=== PATIENT | female | born 1930 | race Caucasian/White ===

== ENCOUNTER 2018-10-14 11:16 | Emergency (ER) | payer OTHER ==
[2018-10-14 12:01] LABS: Absolute Lymphocytes (CBC) 1.2 K/uL (0.7-4.9); Absolute Monocytes 0.6 K/uL (0.1-1.3); Absolute Neutrophil 6.9 K/uL (1.8-8.0); Basophils % 0.6 % (0-1.3); Eosinophils % 0.4 % (0-4.4); Hematocrit 42.8 % (36.0-45.0); Lymphocytes % 13.2 % (15.3-44.8); MPV 7.8 fL (7.6-11.3); Monocytes % 7.2 % (3.3-12.3); RBC Red Blood Cell Count 4.59 M/uL (3.86-4.86)
[2018-10-14 12:02] LABS: Protime INR 0.96
[2018-10-14 12:20] LABS: ALT/SGPT 16 U/L (12-78); AST/SGOT 16 U/L (15-37); Albumin 3.5 g/dL (3.4-5.0); Alkaline Phosphatase 59 U/L (45-117); BUN Blood Urea Nitrogen 15 mg/dL (7-18); Bicarbonate 28 mmol/L (21-32); Bilirubin Direct 0.2 mg/dL (0-0.2); Bilirubin Total 0.8 mg/dL (0.2-1.0); Glucose Level 128 mg/dL (74-106); NT PRO-BNP 105 pg/mL (<450); Potassium 3.4 mmol/L (3.5-5.1); Protein, Total 6.8 g/dL (6.4-8.2); Sodium Level 140 mmol/L (136-145); Troponin (Emerg Dept Use Only) < 0.02 ng/mL (0.0-0.045)
--- NOTE | 2018-10-14 12:23 | RAD REPORT ---
EXAM DESCRIPTION: RAD - Chest Single View - 10/14/2018 12:09 pm CLINICAL HISTORY: Palpitations, chest pain COMPARISON: June 2017 TECHNIQUE: AP portable chest image was obtained 1158 hours . FINDINGS: No acute lung parenchymal process. Interstitial pattern is similar to comparison. Surgical clips overlie the lower left chest. Right hemidiaphragm elevation is again noted. Heart and vasculat ure are normal. No measurable pleural effusion and no pneumothorax. No acute bony abnormality seen. N o acute aortic findings suspected. IMPRESSION: No acute cardiopulmonary process. No significant change from comparison.
--- NOTE | 2018-10-14 13:20 | EDPHYS ---
Physician Documentation [facility] Name: Niurka Colorado Age: 87 yrs Sex: Female : 1930 Arrival Date: 10/14/2018 Time: 11:17 Bed 5 Private MD: Chirag George C ED Physician Moreno Randhawa HPI: 10/14 13:12 This 87 yrs old Female presents to ER via Wheelchair with complaints of jr8 Palpitations. 13:12 The patient presents with a history of irregular heart beat. Context: The symptoms jr8 occur at rest, during sleep. Onset: The symptoms/episode began/occurred gradually, 2 week(s) ago. Duration: The patient or guardian reports multiple episodes. Modifying factors: The symptoms are aggravated by nothing. The symptoms are alleviated by nothing. Associated signs and symptoms: Pertinent positives: SOB. Severity of symptoms: At their worst the symptoms were moderate in the emergency department the symptoms have improved. The patient has not experienced similar symptoms in the past. The patient has been recently seen by a physician:. Patient stated that she is currently wearing Holter monitor for heart palpitations. Came to ED today because there was concern that she was having shortness of breath that would wake her at night. Stated that one year ago had lost her child and has been very sad about this. Has anxiety from loss . Historical: - Allergies: 11:37 NKA; iw - Home Meds: 11:37 metoprolol tartrate 50 mg Oral tab 1 tab once daily [Active]; zolpidem 10 mg Oral tab 1 iw tab once daily [Active]; lorazepam 0.5 mg Oral tab 1 tab 2 times per day [Active]; spironolactone 25 mg Oral tab 1 tab once daily [Active]; - PMHx: 11:38 Hypertension; iw 11:39 Anxiety; Depression; Atrial Fib; iw 11:44 Cancer, Breast; iw - PSHx: 11:37 Knee surgery; Appendectomy; Cholecystectomy; Hysterectomy; Lumpectomy; iw - Ebola Screening: : Patient negative for fever greater than or equal to 101.5 degrees Fahrenheit, and additional compatible Ebola Virus Disease symptoms Patient denies exposure to infectious person Patient denies travel to an Ebola-affected area in the 21 days before illness onset No symptoms or risks identified at this time. ROS: 13:12 Eyes: Negative for injury, pain, redness, and discharge, ENT: Negative for injury, jr8 pain, and discharge, Neck: Negative for injury, pain, and swelling, Abdomen/GI: Negative for abdominal pain, nausea, vomiting, diarrhea, and constipation, Back: Negative for injury and pain, MS/Extremity: Negative for injury and deformity, Skin: Negative for injury, rash, and discoloration, Neuro: Negative for headache, weakness, numbness, tingling, and seizure. 13:12 Cardiovascular: Positive for palpitations, paroxysmal nocturnal dyspnea, Negative for chest pain, edema, orthopnea. 13:12 Respiratory: Positive for shortness of breath. Exam: 13:12 Eyes: Pupils equal round and reactive to light, extra-ocular motions intact. Lids and jr8 lashes normal. Conjunctiva and sclera are non-icteric and not injected. Cornea within normal limits. Periorbital areas with no swelling, redness, or edema. ENT: Nares patent. No nasal discharge, no septal abnormalities noted. Tympanic membranes are normal and external auditory canals are clear. Oropharynx with no redness, swelling, or masses, exudates, or evidence of obstruction, uvula midline. Mucous membranes moist. Neck: Trachea midline, no thyromegaly or masses palpated, and no cervical lymphadenopathy. Supple, full range of motion without nuchal rigidity, or vertebral point tenderness. No Meningismus. Cardiovascular: Regular rate and rhythm with a normal S1 and S2. No gallops, murmurs, or rubs. Normal PMI, no JVD. No pulse deficits. Respiratory: Lungs have equal breath sounds bilaterally, clear to auscultation and percussion. No rales, rhonchi or wheezes noted. No increased work of breathing, no retractions or nasal flaring. Abdomen/GI: Soft, non-tender, with normal bowel sounds. No distension or tympany. No guarding or rebound. No evidence of tenderness throughout. Back: No spinal tenderness. No costovertebral tenderness. Full range of motion. Skin: Warm, dry with normal turgor. Normal color with no rashes, no lesions, and no evidence of cellulitis. MS/ Extremity: Pulses equal, no cyanosis. Neurovascular intact. Full, normal range of motion. Neuro: Awake and alert, GCS 15, oriented to person, place, time, and situation. Cranial nerves II-XII grossly intact. Motor strength 5/5 in all extremities. Sensory grossly intact. Cerebellar exam normal. Normal gait. Vital Signs: 11:35 BP 154 / 85; Pulse 77; Resp 16; Pulse Ox 97% on R/A; Weight 62.14 kg; Height 5 ft. 4 iw in. (162.56 cm); Pain 0/10; 11:37 Temp 98.2(O); aa5 12:15 BP 121 / 74; Pulse 72; Resp 16 S; Pulse Ox 96% on R/A; Pain 0/10; aa5 13:00 BP 121 / 67; Pulse 65; Resp 16 S; Pulse Ox 96% on R/A; aa5 11:35 Body Mass Index 23.52 (62.14 kg, 162.56 cm) iw MDM: 11:28 Patient medically screened. [facility] 13:12 Data reviewed: vital signs, nurses notes, lab test result(s), EKG, radiologic studies, jr8 plain films, and as a result, I will discharge patient. Data interpreted: Pulse oximetry: on room air is 97 %. Interpretation: normal. Counseling: I had a detailed discussion with the patient and/or guardian regarding: the historical points, exam findings, and any diagnostic results supporting the discharge/admit diagnosis, lab results, radiology results, the need for outpatient follow up, a computer forensics analyst, a family practitioner, to return to the emergency department if symptoms worsen or persist or if there are any questions or concerns that arise at home. 10/14 11:41 Order name: Basic Metabolic Panel; Complete Time: 13:10/14 11:41 Order name: CBC with Diff; Complete Time: 12:18 10/14 11:41 Order name: LFT's; Complete Time: 13:10/14 11:41 Order name: Magnesium; Complete Time: 13:10/14 11:41 Order name: NT PRO-BNP; Complete Time: 13:10/14 11:41 Order name: PT-INR; Complete Time: 12:18 10/14 11:41 Order name: Troponin (emerg Dept Use Only); Complete Time: 13:10/14 11:41 Order name: XRAY Chest (1 view); Complete Time: 12:29 10/14 11:41 Order name: EKG; Complete Time: 11:50 8 10/14 11:41 Order name: Cardiac monitoring; Complete Time: 12:08 8 10/14 11:41 Order name: EKG - Nurse/Tech; Complete Time: 12:08 jr8 10/14 12:26 Order name: LAB Add On 10/14 12:36 Order name: T4 Free; Complete Time: 13:05 [facility] 10/14 12:36 Order name: Thyroid Stimulating Hormone; Complete Time: 13:05 [facility] 10/14 11:41 Order name: IV Saline Lock; Complete Time: 11:46 jr8 10/14 11:41 Order name: Labs collected and sent; Complete Time: :46 [facility] 10/14 11:41 Order name: O2 Per Protocol; Complete Time: :46 8 10/14 11:41 Order name: O2 Sat Monitoring; Complete Time: :46 Administered Medications: No medications were administered Disposition: 18:20 Co-signature as Attending Physician, Moreno Randhawa MD. rn Disposition: 10/14/18 13:19 Discharged to Home. Impression: Palpitations. - Condition is Stable. - Discharge Instructions: Holter Monitoring, Palpitations. - Medication Reconciliation Form, Thank You Letter, Antibiotic Education, Prescription Opioid Use form. - Follow up: Chirag George MD; When: 2 - 3 days; Reason: Recheck today's complaints, Continuance of care, Re-evaluation by your physician. - Problem is new. - Symptoms have improved. Signatures: Dispatcher [employer] Lin Martins RN RN iw Nieto, Roman, MD MD rn Calderon, Audri, RN RN aa5 Nick Shultz PA PA jr8 Corrections: (The following items were deleted from the chart) 13:53 13:19 10/14/2018 13:19 Discharged to Home. Impression: Palpitations. Condition is aa5 Stable. Forms are Medication Reconciliation Form, Thank You Letter, Antibiotic Education, Prescription Opioid Use. Follow up: Chirag George; When: 2 - 3 days; Reason: Recheck today's complaints, Continuance of care, Re-evaluation by your physician. Problem is new. Symptoms have improved. jr8
--- NOTE | 2018-10-14 13:20 | ER ---
Nurse's Notes [facility] Name: Niurka Colorado Age: 87 yrs Sex: Female : 1930 Arrival Date: 10/14/2018 Time: 11:17 Bed 5 Private MD: Chirag George C Diagnosis: Palpitations Presentation: 10/14 11:33 Presenting complaint: Patient states: is currently wearing a Holter monitor X 2 weeks, iw has been having palpitations fro a couple months, recently has been feeling SOB at night while sleeping, c/o feeling weak and sweaty, denies fever. Transition of care: patient was not received from another setting of care. Onset of symptoms was October 12, 2018. Risk Assessment: Do you want to hurt yourself or someone else? Patient reports no desire to harm self or others. Initial Sepsis Screen: Does the patient meet any 2 criteria? No. Patient's initial sepsis screen is negative. Does the patient have a suspected source of infection? No. Patient's initial sepsis screen is negative. Care prior to arrival: None. 11:33 Method Of Arrival: Wheelchair iw 11:33 Acuity: AMANDA 3 iw Historical: - Allergies: 11:37 NKA; iw - Home Meds: 11:37 metoprolol tartrate 50 mg Oral tab 1 tab once daily [Active]; zolpidem 10 mg Oral tab 1 iw tab once daily [Active]; lorazepam 0.5 mg Oral tab 1 tab 2 times per day [Active]; spironolactone 25 mg Oral tab 1 tab once daily [Active]; - PMHx: 11:38 Hypertension; iw 11:39 Anxiety; Depression; Atrial Fib; iw 11:44 Cancer, Breast; iw - PSHx: 11:37 Knee surgery; Appendectomy; Cholecystectomy; Hysterectomy; Lumpectomy; iw - Ebola Screening: : Patient negative for fever greater than or equal to 101.5 degrees Fahrenheit, and additional compatible Ebola Virus Disease symptoms Patient denies exposure to infectious person Patient denies travel to an Ebola-affected area in the 21 days before illness onset No symptoms or risks identified at this time. Screenin:50 Abuse screen: Denies threats or abuse. Nutritional screening: No deficits noted. aa5 Tuberculosis screening: No symptoms or risk factors identified. Fall Risk Fall in past 12 months (25 points). No secondary diagnosis (0 pts). IV access (20 points). Ambulatory Aid- None/Bed Rest/Nurse Assist (0 pts). Mental Status- Oriented to own ability (0 pts). Total Chong Fall Scale indicates High Risk Score (45 or more points). Fall prevention measures have been instituted. Side Rails Up X 2. Assessment: 11:37 General: Appears comfortable, Behavior is calm, cooperative, Pt states "I came here aa5 today because the palpitations were worse during the night and my heart rate was 136" . Pain: Denies pain. Neuro: Level of Consciousness is awake, alert, obeys commands, Oriented to person, place, time, situation. Cardiovascular: Reports palpitations and SOB only during the night while asleep Heart tones S1 S2 present Rhythm is sinus rhythm. Respiratory: Airway is patent Respiratory effort is even, unlabored, Respiratory pattern is regular, symmetrical, Breath sounds are clear bilaterally. GI: Abdomen is round non-distended, Bowel sounds present X 4 quads. Abd is soft and non tender X 4 quads. : No signs and/or symptoms were reported regarding the genitourinary system. EENT: No signs and/or symptoms were reported regarding the EENT system. Derm: Skin is pink, warm \\T\\ dry. Musculoskeletal: Range of motion: intact in all extremities. 12:15 Reassessment: Pt resting in bed with eyes closed, respirations even and unlabored, skin aa5 is pink/warm/dry. 13:40 Reassessment: Patient is alert, oriented x 3, equal unlabored respirations, skin aa5 warm/dry/pink. Patient denies pain at this time. Vital Signs: 11:35 BP 154 / 85; Pulse 77; Resp 16; Pulse Ox 97% on R/A; Weight 62.14 kg; Height 5 ft. 4 iw in. (162.56 cm); Pain 0/10; 11:37 Temp 98.2(O); aa5 12:15 BP 121 / 74; Pulse 72; Resp 16 S; Pulse Ox 96% on R/A; Pain 0/10; aa5 13:00 BP 121 / 67; Pulse 65; Resp 16 S; Pulse Ox 96% on R/A; aa5 11:35 Body Mass Index 23.52 (62.14 kg, 162.56 cm) iw ED Course: 11:17 Patient arrived in ED. rg4 11:18 Chirag George MD is Private Physician. rg4 11:28 Nick Shultz PA is PHCP. jr8 11:28 Moreno Randhawa MD is Attending Physician. jr8 11:30 Vandana Silva, RN is Primary Nurse. aa5 11:35 Triage completed. iw 11:36 Arm band placed on. iw 11:37 Patient has correct armband on for positive identification. aa5 11:37 general merchandise manager on. Pulse ox on. NIBP on. aa5 11:39 Initial lab(s) drawn, by me. Inserted saline lock: 20 gauge in right forearm, using aa5 aseptic technique. 11:45 EKG done, by transportation engineering technician. reviewed by Moreno Randhawa MD. at1 12:07 X-ray completed. Portable x-ray completed in exam room. Patient tolerated procedure sw well. 12:11 XRAY Chest (1 view) In Process Unspecified. EDMS 12:14 No provider procedures requiring assistance completed. aa5 13:19 Chirag George MD is Referral Physician. jr8 13:40 IV discontinued, intact, bleeding controlled, No redness/swelling at site. Pressure aa5 dressing applied. Administered Medications: No medications were administered Outcome: 13:19 Discharge ordered by MD. jr8 13:40 Discharged to home via wheelchair, with family. aa5 13:40 Condition: stable 13:40 Discharge instructions given to patient, family, Instructed on discharge instructions, follow up and referral plans. Demonstrated understanding of instructions, follow-up care. 13:53 Patient left the ED. aa5 Signatures: Dispatcher [employer] EDMS Lin Pizano RN RN Vandana Silva, RN RN aa5 Nick Shultz PA PA jr8 Becky Eaton, spectrographic analyst EKG Tat1 Fadia Green Rubi rg4
[2018-10-14 14:08] VITALS: TEMP 98.2
[2018-10-14 14:09] VITALS: O2SAT 96
[2018-10-14 14:11] VITALS: BP 121/67
--- NOTE | 2018-10-14 16:57 | EKG ---
Test Date: 2018-10-14 Test Time: 11:26:53 Solution Advisor: ELY MEASUREMENT RESULTS: Intervals: Rate: 75 WI: 160 QRSD: 116 QT: 372 QTc: 415 [place]: P: 46 WI: 160 QRS: 11 T: 29 INTERPRETIVE STATEMENTS: Normal sinus rhythm Incomplete right bundle branch block ST & T wave abnormality, consider anterior ischemia Abnormal ECG Compared to ECG 01/02/2015 05:52:23 Incomplete right bundle-branch block now present Possible ischemia now present ST (T wave) deviation still present Electronically Signed On 10-14-18 16:56:48 OSTEOPATHIC PHYSICIAN by All Cullen
== END 2018-10-14 13:53 | disposition home or self-care (01) ==
LOC: ER 11:16
DX: R00.2 Palpitations (principal); I45.10 Unspecified right bundle-branch block; I10 Essential (primary) hypertension; F41.9 Anxiety disorder, unspecified; F32.9 Major depressive disorder, single episode, unspecified; I48.91 Unspecified atrial fibrillation
CPT/HCPCS: 36415; 71045; 80048; 80076; 83735; 83880; 84439; 84443; 84484; 85025; 85610; 93005; 99284

== ENCOUNTER 2019-04-05 10:38 | Emergency (ER) | payer OTHER ==
--- NOTE | 2019-04-05 10:56 | ER ---
Nurse's Notes [facility] Name: Niurka Colorado Age: 88 yrs Sex: Female : 1930 Arrival Date: 04/05/2019 Time: 10:41 Bed 14 Private MD: Chirag George C Diagnosis: Patient's intentional underdosing of medication regimen for other reason Presentation: 04/05 10:42 Presenting complaint: Patient states: i need a Rx refill for lorazepam 0.5 mg twice a hj day; i was out since yesterday morning; im due to see PCP on May;. Transition of care: patient was not received from another setting of care. Onset of symptoms was April 05, 2019. Risk Assessment: Do you want to hurt yourself or someone else? Patient reports no desire to harm self or others. Initial Sepsis Screen: Does the patient meet any 2 criteria? No. Patient's initial sepsis screen is negative. Does the patient have a suspected source of infection? No. Patient's initial sepsis screen is negative. Care prior to arrival: None. 10:42 Method Of Arrival: Ambulatory 10:42 Acuity: AMANDA 5 Triage Assessment: 10:52 General: Appears in no apparent distress. slender, Behavior is cooperative, appropriate hj for age, anxious. Pain: Denies pain. Historical: - Allergies: 10:44 NKA; hj - Home Meds: 10:53 lorazepam 0.5 mg Oral tab 1 tab 2 times per day [Active]; metoprolol tartrate 50 mg hj Oral tab 1 tab once daily [Active]; spironolactone 25 mg Oral tab 1 tab once daily [Active]; zolpidem 10 mg Oral tab 1 tab once daily [Active]; - PMHx: 10:44 Anxiety; Atrial Fib; Cancer, Breast; Depression; Hypertension; hj - PSHx: 10:44 Knee surgery; Appendectomy; Cholecystectomy; Hysterectomy; Lumpectomy; hj - Immunization history:: Adult Immunizations up to date. - Social history:: Smoking status: Patient/guardian denies using tobacco, Patient/guardian denies using alcohol. - Ebola Screening: : Patient negative for fever greater than or equal to 101.5 degrees Fahrenheit, and additional compatible Ebola Virus Disease symptoms Patient denies exposure to infectious person Patient denies travel to an Ebola-affected area in the 21 days before illness onset. Screenin:52 Abuse screen: Denies threats or abuse. Denies injuries from another. Nutritional hj screening: No deficits noted. Tuberculosis screening: No symptoms or risk factors identified. Fall Risk None identified. Vital Signs: 10:45 BP 131 / 84; Pulse 92; Resp 18; Temp 97.9(O); Pulse Ox 95% on R/A; Weight 66.22 kg; hj Height 5 ft. 4 in. (162.56 cm); Pain 0/10; 10:45 Body Mass Index 25.06 (66.22 kg, 162.56 cm) ED Course: 10:41 Patient arrived in ED. mr 10:41 Chirag George MD is Private Physician. mr 10:44 Triage completed. hj 10:44 Arm band placed on. hj 10:49 [facility] Houston [facility] snw 10:49 Moreno Randhawa MD is Attending Physician. snw 10:53 Patient has correct armband on for positive identification. Bed in low position. Call light in reach. Side rails up X 1. Adult w/ patient. 10:54 Delvis Xie, RN is Primary Nurse. 10:54 Chirag George MD is Referral Physician. snw Administered Medications: 11:01 Drug: XANax Tablet 1 mg Route: PO; Outcome: 10:55 Discharge ordered by . snw 11:04 Patient left the ED. Signatures: Delvis Xie RN RN Tracy Houston FNP-C FNP-Karen Ángela Oglesby Lin Pizano RN RN Flaquito Ty RN RN
--- NOTE | 2019-04-05 10:56 | EDPHYS ---
Physician Documentation [facility] Name: Niurka Colorado Age: 88 yrs Sex: Female : 1930 Arrival Date: 04/05/2019 Time: 10:41 Bed 14 Private MD: Chirag George C ED Physician Moreno Randhawa HPI: 04/05 11:01 This 88 yrs old Female presents to ER via Ambulatory with complaints of snw Medication Refill. 11:01 The patient presents to the emergency department requesting refill(s) for: Xanax. The snw patient chronically suffers from heart disease, hypertension, anxiety, breast ca. It is unknown whether or not the patient has had similar symptoms in the past. sees Dr. George. Historical: - Allergies: 10:44 NKA; hj - Home Meds: 10:53 lorazepam 0.5 mg Oral tab 1 tab 2 times per day [Active]; metoprolol tartrate 50 mg hj Oral tab 1 tab once daily [Active]; spironolactone 25 mg Oral tab 1 tab once daily [Active]; zolpidem 10 mg Oral tab 1 tab once daily [Active]; - PMHx: 10:44 Anxiety; Atrial Fib; Cancer, Breast; Depression; Hypertension; hj - PSHx: 10:44 Knee surgery; Appendectomy; Cholecystectomy; Hysterectomy; Lumpectomy; hj - Immunization history:: Adult Immunizations up to date. - Social history:: Smoking status: Patient/guardian denies using tobacco, Patient/guardian denies using alcohol. - Ebola Screening: : Patient negative for fever greater than or equal to 101.5 degrees Fahrenheit, and additional compatible Ebola Virus Disease symptoms Patient denies exposure to infectious person Patient denies travel to an Ebola-affected area in the 21 days before illness onset. ROS: 11:00 Constitutional: Negative for fever, chills, and weight loss, Eyes: Negative for injury, snw pain, redness, and discharge, ENT: Negative for injury, pain, and discharge, Neck: Negative for injury, pain, and swelling, Cardiovascular: Negative for chest pain, palpitations, and edema, Respiratory: Negative for shortness of breath, cough, wheezing, and pleuritic chest pain, Abdomen/GI: Negative for abdominal pain, nausea, vomiting, diarrhea, and constipation, Back: Negative for injury and pain, : Negative for injury, bleeding, discharge, and swelling, MS/Extremity: Negative for injury and deformity, Skin: Negative for injury, rash, and discoloration, Neuro: Negative for headache, weakness, numbness, tingling, and seizure. 11:00 Psych: Positive for anxiety, needs medication refill. Exam: 10:57 Constitutional: This is a well developed, well nourished patient who is awake, alert, snw and in no acute distress. Head/Face: Normocephalic, atraumatic. Eyes: Pupils equal round and reactive to light, extra-ocular motions intact. Lids and lashes normal. Conjunctiva and sclera are non-icteric and not injected. Cornea within normal limits. Periorbital areas with no swelling, redness, or edema. ENT: Nares patent. No nasal discharge, no septal abnormalities noted. Tympanic membranes are normal and external auditory canals are clear. Oropharynx with no redness, swelling, or masses, exudates, or evidence of obstruction, uvula midline. Mucous membranes moist. Neck: Trachea midline, no thyromegaly or masses palpated, and no cervical lymphadenopathy. Supple, full range of motion without nuchal rigidity, or vertebral point tenderness. No Meningismus. Chest/axilla: Normal chest wall appearance and motion. Nontender with no deformity. No lesions are appreciated. Respiratory: Lungs have equal breath sounds bilaterally, clear to auscultation and percussion. No rales, rhonchi or wheezes noted. No increased work of breathing, no retractions or nasal flaring. Abdomen/GI: Soft, non-tender, with normal bowel sounds. No distension or tympany. No guarding or rebound. No evidence of tenderness throughout. Back: No spinal tenderness. No costovertebral tenderness. Full range of motion. Skin: Warm, dry with normal turgor. Normal color with no rashes, no lesions, and no evidence of cellulitis. MS/ Extremity: Pulses equal, no cyanosis. Neurovascular intact. Full, normal range of motion. Neuro: Awake and alert, GCS 15, oriented to person, place, time, and situation. Cranial nerves II-XII grossly intact. Motor strength 5/5 in all extremities. Sensory grossly intact. Cerebellar exam normal. Normal gait. 10:57 Cardiovascular: Rate: normal, Rhythm: irregularly irregular, Heart sounds: normal. Vital Signs: 10:45 BP 131 / 84; Pulse 92; Resp 18; Temp 97.9(O); Pulse Ox 95% on R/A; Weight 66.22 kg; hj Height 5 ft. 4 in. (162.56 cm); Pain 0/10; 10:45 Body Mass Index 25.06 (66.22 kg, 162.56 cm) hj MDM: 10:49 Patient medically screened. snw 11:01 Data reviewed: vital signs, nurses notes. Data interpreted: Pulse oximetry: on room air snw is 95 %. Interpretation: acceptable. Counseling: I had a detailed discussion with the patient and/or guardian regarding: the historical points, exam findings, and any diagnostic results supporting the discharge/admit diagnosis, the need for outpatient follow up, to return to the emergency department if symptoms worsen or persist or if there are any questions or concerns that arise at home. Special discussion: Based on the history and exam findings, there is no indication for further emergent testing or inpatient evaluation. I discussed with the patient/guardian the need to see the primary care provider for further evaluation of the symptoms. Administered Medications: 11:01 Drug: XANax Tablet 1 mg Route: PO; iw Disposition: 13:08 Co-signature as Attending Physician, Moreno Randhawa MD. rn Disposition: 04/05/19 10:55 Discharged to Home. Impression: Patient's intentional underdosing of medication regimen for other reason. - Condition is Stable. - Discharge Instructions: Medicine Refill at the Emergency Department. - Medication Reconciliation Form, Thank You Letter, Antibiotic Education, Prescription Opioid Use form. - Follow up: Chirag George MD; When: Tomorrow; Reason: Recheck today's complaints, Continuance of care, Re-evaluation by your physician. Follow up: Emergency Department; When: As needed; Reason: Worsening of condition. Signatures: Tracy Houston, COURTESY CAR DRIVER-C COURTESY CAR DRIVER-Csnw Lin Pizano, RN KEMI Moreno Randhawa MD MD rn Joaquin, Henry, RN RN Corrections: (The following items were deleted from the chart) 11:04 10:55 04/05/2019 10:55 Discharged to Home. Impression: Patient's intentional iw underdosing of medication regimen for other reason. Condition is Stable. Forms are Medication Reconciliation Form, Thank You Letter, Antibiotic Education, Prescription Opioid Use. Follow up: A George; When: Tomorrow; Reason: Recheck today's complaints, Continuance of care, Re-evaluation by your physician. Follow up: Emergency Department; When: As needed; Reason: Worsening of condition. snw
[2019-04-05] MEDS ORDERED: ALPRAZOLAM 1 MG TABLET ONE (10:57)
[2019-04-05 11:07] VITALS: BP 131/84; TEMP 97.9; O2SAT 95
--- OUTSIDE RECORDS SUMMARY | 2019-04-05 12:51 | XMS REPORT | Clinical Summary ---
:1930 Author Organization [facility] Address [address] [place] [address] Care Team Providers Name Role Phone Provider, Unknown Primary Care Provider Unavailable Allergies Not on File Medications Not on file Active Problems Not on file Social History Tobacco Use Types Packs/Day Years Used Date Never Assessed Sex Assigned at Date Recorded Not on file Job Start Date Occupation Industry Not on file Not on file Not on file Travel History Travel Start Travel End No recent travel history available. Last Filed Vital Signs Not on file Plan of Treatment Not on file Results Not on fileafter 04/04/2018 Insurance Payer Benefit Plan / Subscriber ID Effective Dates Phone Address Type Group MEDICARE MEDICARE PART A xxxxxxxxxx 1997-Present [place], [place] Medicare AND B AETNA AETNA PPO OPEN xxxxxxxxx 2011-Present PPO CHOICE Advance Directives Patient has advance care planning documents on file. For more information, please contact:[facility] [place] [address]
--- OUTSIDE RECORDS SUMMARY | 2019-04-05 12:51 | XMS REPORT ---
:1930 [facility] Address [address] [place] [address] Dr. Sue. [address] [place] [id number] Care Team Providers Name Role Phone Unavailable Unavailable Unavailable Problems This patient has no known problems. Allergies, Adverse Reactions, Alerts This patient has no known allergies or adverse reactions. Medications This patient has no known medications.
== END 2019-04-05 11:04 | disposition home or self-care (01) ==
LOC: ER 10:38
DX: Z91.128 Patient's intentional underdosing of medication regimen for other reason (principal); I48.91 Unspecified atrial fibrillation; I10 Essential (primary) hypertension; C50.919 Malignant neoplasm of unspecified site of unspecified female breast; F41.9 Anxiety disorder, unspecified; F32.9 Major depressive disorder, single episode, unspecified
CPT/HCPCS: 99282